=== PATIENT | male | born 1980 | race Caucasian/White ===

== ENCOUNTER 2016-08-03 13:33 | Emergency (ER) | payer BC ==
--- NOTE | 2016-08-03 17:45 | RAD ---
RIGHT ANKLE THREE VIEWS 08/03/2016 FINDINGS: There is some mild lateral soft tissue swelling. No fractures are seen. The joint appears normal. IMPRESSION: No acute finding. POS: HOME
== END 2016-08-03 14:30 | disposition home or self-care (01) ==
LOC: BURERS 13:33
DX: S93.401A Sprain of unspecified ligament of right ankle, initial encounter (principal); X50.0XXA Overexertion from strenuous movement or load, initial encounter; Y93.39 Activity, other involving climbing, rappelling and jumping off